=== PATIENT | male | born 1980 | race Caucasian/White ===

== ENCOUNTER → 2020-11-18 | Outpatient (CLI) | payer SELFPAY ==
--- NOTE | 2020-11-18 11:45 | XR ---
EXAMINATION TYPE: XR foot limited RT DATE OF EXAM: 11/18/2020 COMPARISON: None HISTORY: Right foot pain TECHNIQUE: 2 view right foot FINDINGS: There is an oblique fracture of the mid to distal diaphyseal fifth metacarpal. Overlying so ft tissue swelling is present. No additional fractures are evident. Plantar calcaneal heel spur is pr esent. IMPRESSION: 1. Oblique fracture mid to distal fifth metatarsal with soft tissue swelling. 2. Calcaneal heel spur
== END | disposition home or self-care (01) ==
LOC: RADXRMAIN 11:28
PROVIDERS: ATTEND Internal Medicine
DX: S92.351A Displaced fracture of fifth metatarsal bone, right foot, initial encounter for closed fracture (principal); M77.31 Calcaneal spur, right foot; M79.89 Other specified soft tissue disorders

== ENCOUNTER → 2020-12-04 | Outpatient (CLI) | payer OTHER | END | disposition home or self-care (01) | LOC: LABWHC1 13:17 | PROVIDERS: ATTEND Physician Assistant | DX: E13.9 Other specified diabetes mellitus without complications (principal); M79.671 Pain in right foot; S92.351D Displaced fracture of fifth metatarsal bone, right foot, subsequent encounter for fracture with routine healing; F17.200 Nicotine dependence, unspecified, uncomplicated | CPT/HCPCS: 36415; 82306 ==

== ENCOUNTER → 2021-01-12 | Outpatient (CLI) | payer OTHER | LOC: LABWHC1 11:32 | PROVIDERS: ATTEND Physician Assistant | DX: S92.351D Displaced fracture of fifth metatarsal bone, right foot, subsequent encounter for fracture with routine healing (principal); E13.9 Other specified diabetes mellitus without complications; F17.200 Nicotine dependence, unspecified, uncomplicated; X58.XXXD Exposure to other specified factors, subsequent encounter | CPT/HCPCS: 36415; 82306 ==